=== PATIENT | male | born 1980 | race Caucasian/White ===

== ENCOUNTER 2018-06-24 07:17 | Emergency (ER) | payer OTHER, SELFPAY ==
[2018-06-24] MEDS ORDERED: NA CHLORIDE 0.9% 1,000 ML ONE ×2 (07:46→08:04)
[2018-06-24 07:52] LABS: Urine Blood 3+ (NEG); Urine Glucose NEGATIVE (NEG); Urine Protein TRACE (NEG); Urine Specific Gravity >1.030 (1.005-1.030); Urine pH 5.5 (5.0-7.0)
[2018-06-24] MEDS ORDERED: ONDANSETRON 4 MG/2 ML VIAL ONE (08:02)
[2018-06-24] MEDS ORDERED: FENTANYL CITR 100 MCG/2 ML ONE (08:04)
[2018-06-24 08:07] LABS: Urine Bacteria <20 /HPF (NONE SEEN)
[2018-06-24 08:07] LABS: Absolute Lymphocytes (CBC) 1.3 K/uL (0.7-4.9); Absolute Monocytes 0.4 K/uL (0.1-1.3); Absolute Neutrophil 2.7 K/uL (1.8-8.0); Basophils % 0.7 % (0-1.3); Eosinophils % 4.1 % (0-4.4); Hematocrit 45.7 % (39.6-49.0); Lymphocytes % 27.9 % (15.3-44.8); MCH 29.5 pg (27.0-35.0); MCV 85.6 fL (80-100); MPV 9.2 fL (7.6-11.3); Monocytes % 8.3 % (3.3-12.3); RBC Red Blood Cell Count 5.34 M/uL (4.33-5.43)
[2018-06-24 08:08] LABS: Urine Culture Reflex Order NOT NEEDED; Urine Mucus SLIGHT /HPF (NONE SEEN)
[2018-06-24 08:09] LABS: Calcium Oxalate Crystals- Ur FEW (NONE SEEN)
[2018-06-24 08:09] LABS: Potassium 3.9 mmol/L (3.5-5.1)
--- NOTE | 2018-06-24 08:12 | RAD REPORT ---
EXAM DESCRIPTION: CT - Stone Protocol - 06/24/2018 7:51 am CLINICAL HISTORY: Abdominal pain. Right flank pain. Dysuria COMPARISON: None. TECHNIQUE: Computed axial tomography of the abdomen pelvis was obtained without oral or IV contrast. Lack of IV and oral contrast limits evaluation of solid organs, bowel, and vessels. Coronal reformat sandee images were obtained and reviewed. All CT scans are performed using dose optimization technique as appropriate and may include automated exposure control or mA/KV adjustment according to patient size. FINDINGS: A renal calculus is not seen. Mild right hydronephrosis is present. A 4.5 millimeter calcu mcia Hounsfield unit 100 is present at the right ureteral vesicle junction. A left renal calculus is n ot seen. The liver, spleen, pancreas and adrenals appear grossly normal There is no evidence of diverticulitis. The appendix appears normal. Tiny umbilical hernia is seen. IMPRESSION: 4.5 millimeter calculus distal right ureterovesical junction resulting in mild right hyd ronephrosis
[2018-06-24] MEDS ORDERED: MAGNESIUM SULFATE 1 gm IVPB 1 GM/100 ML BAG IV ONE (08:31)
[2018-06-24] MEDS ORDERED: KETOROLAC 30 MG/ML INJ ONE (08:31)
[2018-06-24] MEDS ORDERED: TAMSULOSIN 0.4 MG SR CAP ONE (08:31)
--- NOTE | 2018-06-24 08:52 | ER ---
Nurse's Notes [facility] Name: Kyle Curiel Age: 38 yrs Sex: Male : 1980 Arrival Date: 06/24/2018 Time: 07:20 Bed 18 Private MD: Diagnosis: Calculus of kidney and ureter Presentation: 06/24 07:30 Presenting complaint: Patient states: R flank pain that began this morning, also ph reports difficulty urinating, denies N/V or fever. Transition of care: patient was not received from another setting of care. Onset of symptoms was June 24, 2018. Risk Assessment: Do you want to hurt yourself or someone else? Patient reports no desire to harm self or others. Initial Sepsis Screen: Does the patient meet any 2 criteria? No. Patient's initial sepsis screen is negative. Does the patient have a suspected source of infection? No. Patient's initial sepsis screen is negative. Care prior to arrival: None. 07:30 Method Of Arrival: Ambulatory ph 07:30 Acuity: KELLY 3 ph Historical: - Allergies: 07:31 No Known Allergies; ph - Home Meds: 07:31 None [Active]; ph - PMHx: 07:31 None; ph - PSHx: 07:31 None; ph - Immunization history:: Adult Immunizations unknown, Flu vaccine is not up to date. - Social history:: Smoking status: Patient/guardian denies using tobacco. - Ebola Screening: : No symptoms or risks identified at this time. Screenin:49 Abuse screen: Denies threats or abuse. Denies injuries from another. Nutritional ph screening: No deficits noted. Tuberculosis screening: No symptoms or risk factors identified. Fall Risk None identified. Assessment: 07:48 General: Appears in no apparent distress. uncomfortable, well groomed, Behavior is ph calm, cooperative, appropriate for age, Denies fever. Pain: Complains of pain in right lower quadrant and right flank. Neuro: Level of Consciousness is awake, alert, obeys commands, Oriented to person, place, time, situation. Cardiovascular: Capillary refill < 3 seconds in bilateral fingers Patient's skin is warm and dry. Respiratory: Airway is patent Respiratory effort is even, unlabored. GI: Abdomen is round non-distended, Bowel sounds present X 4 quads. Abd is soft and non tender X 4 quads. Patient currently denies diarrhea, nausea, vomiting. : Reports pain in right flank(s), lower quadrant(s) with urination, "difficulty urinating". Derm: Skin is intact, is healthy with good turgor, Skin is pink, warm \\T\\ dry. Musculoskeletal: Circulation, motion, and sensation intact. Range of motion: intact in all extremities. 08:30 Reassessment: Patient appears in no apparent distress at this time. Patient and/or ph family updated on plan of care and expected duration. Pain level reassessed. Patient is alert, oriented x 3, equal unlabored respirations, skin warm/dry/pink. 09:21 Reassessment: Patient appears in no apparent distress at this time. Patient and/or ph family updated on plan of care and expected duration. Pain level reassessed. Patient is alert, oriented x 3, equal unlabored respirations, skin warm/dry/pink. Pt d/c home w/ multiple prescriptions. Vital Signs: 07:31 BP 145 / 93; Pulse 65; Resp 18; Temp 97.8; Pulse Ox 95% on R/A; Weight 124.74 kg; ph Height 6 ft. 0 in. (182.88 cm); Pain 5/10; 08:34 BP 126 / 72; Pulse 62; Resp 18; Pulse Ox 97% on R/A; ph 09:21 BP 122 / 68; Pulse 61; Resp 18; Temp 97.9; Pulse Ox 97% on R/A; ph 07:31 Body Mass Index 37.30 (124.74 kg, 182.88 cm) ph ED Course: 07:20 Patient arrived in ED. as 07:21 Jacqueline Willams FNP-C is PHCP. kb 07:21 Fei Nassar MD is Attending Physician. kb 07:30 Maribel Humphreys RN is Primary Nurse. ph 07:30 Initial lab(s) drawn, sent to lab. Urine collected: clean catch specimen, elly colored.ph 07:31 Triage completed. ph 07:32 Arm band placed on. ph 07:40 Inserted saline lock: 20 gauge in right antecubital area, using aseptic technique. ph Blood collected. 07:50 Patient has correct armband on for positive identification. Bed in low position. Call ph light in reach. Side rails up X 1. Pulse ox on. NIBP on. Warm blanket given. 07:52 CT Stone Protocol In Process Unspecified. EDMS 08:53 Ishmael Decker MD is Referral Physician. kb 09:22 No provider procedures requiring assistance completed. IV discontinued, intact, ph bleeding controlled, No redness/swelling at site. Pressure dressing applied. Administered Medications: 08:03 Drug: NS 0.9% 1000 ml Route: IV; Rate: 1000 ml; Site: right antecubital; la1 09:00 Follow up: Response: No adverse reaction; IV Status: Completed infusion ph 08:03 Drug: fentaNYL (PF) 50 mcg Route: IVP; Site: right antecubital; la1 08:34 Follow up: Response: No adverse reaction ph 08:03 Drug: Zofran 4 mg Route: IVP; Site: right antecubital; la1 08:34 Follow up: Response: No adverse reaction ph 08:33 Drug: Flomax 0.4 mg Route: PO; ph 09:00 Follow up: Response: No adverse reaction ph 08:33 Drug: TORadol 30 mg Route: IVP; Site: right antecubital; ph 09:00 Follow up: Response: No adverse reaction; Pain is decreased ph 08:34 Drug: Magnesium Sulfate 1 grams Route: IVPB; Infused Over: 30 mins; Site: right ph antecubital; 09:10 Follow up: Response: No adverse reaction; IV Status: Completed infusion ph Outcome: 08:52 Discharge ordered by MD. kb 09:22 Discharged to home ambulatory. ph 09:22 Condition: good 09:22 Discharge instructions given to patient, Instructed on discharge instructions, follow up and referral plans. medication usage, Demonstrated understanding of instructions, follow-up care, medications, Prescriptions given X 5 09:23 Patient left the ED. ph Signatures: Dispatcher [employer] EDJacqueline Lott, ADAM HUFFMAN-Bri Sweet Lee RN RN la1 Maribel Humphreys RN RN ph
--- NOTE | 2018-06-24 08:53 | EDPHYS ---
Physician Documentation [facility] Name: Kyle Curiel Age: 38 yrs Sex: Male : 1980 Arrival Date: 06/24/2018 Time: 07:20 Bed 18 Private MD: ED Physician Fei Nassar HPI: 06/24 07:31 This 38 yrs old Male presents to ER via Ambulatory with complaints of kb Possible Kidney Stone. 07:32 The patient complains of pain in the right flank. The pain radiates to the right lower kb quadrant. Onset: The symptoms/episode began/occurred this morning. Modifying factors: The symptoms are alleviated by nothing. the symptoms are aggravated by nothing. Associated signs and symptoms: Pertinent positives: dysuria, difficulty urinating. Severity of pain: At its worst the pain was moderate in the emergency department the pain has improved. The patient has experienced a previous episode, last week, but today's symptoms are not as bad as this previous episode. The patient has not recently seen a physician. Historical: - Allergies: 07:31 No Known Allergies; ph - Home Meds: 07:31 None [Active]; ph - PMHx: 07:31 None; ph - PSHx: 07:31 None; ph - Immunization history:: Adult Immunizations unknown, Flu vaccine is not up to date. - Social history:: Smoking status: Patient/guardian denies using tobacco. - Ebola Screening: : No symptoms or risks identified at this time. ROS: 07:31 Constitutional: Negative for fever, chills, and weight loss, Cardiovascular: Negative kb for chest pain, palpitations, and edema, Respiratory: Negative for shortness of breath, cough, wheezing, and pleuritic chest pain, Abdomen/GI: Negative for abdominal pain, nausea, vomiting, diarrhea, and constipation, MS/Extremity: Negative for injury and deformity, Skin: Negative for injury, rash, and discoloration, Neuro: Negative for headache, weakness, numbness, tingling, and seizure. 07:31 : Positive for urinary symptoms, flank pain, small amounts, burning with urination, difficulty urinating. Exam: 07:31 Constitutional: This is a well developed, well nourished patient who is awake, alert, kb and in no acute distress. Head/Face: Normocephalic, atraumatic. Chest/axilla: Normal chest wall appearance and motion. Nontender with no deformity. No lesions are appreciated. Cardiovascular: Regular rate and rhythm with a normal S1 and S2. No gallops, murmurs, or rubs. Normal PMI, no JVD. No pulse deficits. Respiratory: Lungs have equal breath sounds bilaterally, clear to auscultation and percussion. No rales, rhonchi or wheezes noted. No increased work of breathing, no retractions or nasal flaring. Abdomen/GI: Soft, non-tender, with normal bowel sounds. No distension or tympany. No guarding or rebound. No evidence of tenderness throughout. Back: No spinal tenderness. No costovertebral tenderness. Full range of motion. Skin: Warm, dry with normal turgor. Normal color with no rashes, no lesions, and no evidence of cellulitis. MS/ Extremity: Pulses equal, no cyanosis. Neurovascular intact. Full, normal range of motion. Neuro: Awake and alert, GCS 15, oriented to person, place, time, and situation. Cranial nerves II-XII grossly intact. Motor strength 5/5 in all extremities. Sensory grossly intact. Cerebellar exam normal. Normal gait. Vital Signs: 07:31 BP 145 / 93; Pulse 65; Resp 18; Temp 97.8; Pulse Ox 95% on R/A; Weight 124.74 kg; ph Height 6 ft. 0 in. (182.88 cm); Pain 5/10; 08:34 BP 126 / 72; Pulse 62; Resp 18; Pulse Ox 97% on R/A; ph 09:21 BP 122 / 68; Pulse 61; Resp 18; Temp 97.9; Pulse Ox 97% on R/A; ph 07:31 Body Mass Index 37.30 (124.74 kg, 182.88 cm) ph MDM: 07:22 Patient medically screened. kb 07:31 Data reviewed: vital signs, nurses notes. Data interpreted: Pulse oximetry: on room air kb is 95 %. Interpretation: normal. 08:51 Counseling: I had a detailed discussion with the patient and/or guardian regarding: the kb historical points, exam findings, and any diagnostic results supporting the discharge/admit diagnosis, lab results, radiology results, the need for outpatient follow up, a urologist, to return to the emergency department if symptoms worsen or persist or if there are any questions or concerns that arise at home. 06/24 07:26 Order name: Basic Metabolic Panel; Complete Time: 08:14 kb 06/24 07:26 Order name: CBC with Diff; Complete Time: 08:14 kb 06/24 07:26 Order name: Urine Microscopic Only; Complete Time: 08:14 kb 06/24 07:26 Order name: CT Stone Protocol; Complete Time: 08:14 kb 06/24 07:40 Order name: Urine Dipstick--Ancillary (enter results); Complete Time: 08:08 bd 06/24 07:26 Order name: IV Saline Lock; Complete Time: 08:03 kb 06/24 07:26 Order name: Labs collected and sent; Complete Time: 08:03 kb 06/24 07:26 Order name: Urine Dipstick-Ancillary (obtain specimen); Complete Time: 07:32 kb Administered Medications: 08:03 Drug: NS 0.9% 1000 ml Route: IV; Rate: 1000 ml; Site: right antecubital; la1 09:00 Follow up: Response: No adverse reaction; IV Status: Completed infusion ph 08:03 Drug: fentaNYL (PF) 50 mcg Route: IVP; Site: right antecubital; la1 08:34 Follow up: Response: No adverse reaction ph 08:03 Drug: Zofran 4 mg Route: IVP; Site: right antecubital; la1 08:34 Follow up: Response: No adverse reaction ph 08:33 Drug: Flomax 0.4 mg Route: PO; ph 09:00 Follow up: Response: No adverse reaction ph 08:33 Drug: TORadol 30 mg Route: IVP; Site: right antecubital; ph 09:00 Follow up: Response: No adverse reaction; Pain is decreased ph 08:34 Drug: Magnesium Sulfate 1 grams Route: IVPB; Infused Over: 30 mins; Site: right ph antecubital; 09:10 Follow up: Response: No adverse reaction; IV Status: Completed infusion ph Disposition: 16:16 Co-signature as Attending Physician, Fei Nassar MD I agree with the assessment and kdr plan of care. Disposition: 06/24/18 08:52 Discharged to Home. Impression: Calculus of kidney and ureter. - Condition is Stable. - Discharge Instructions: Kidney Stones, [id number], Dietary Guidelines to Help Prevent Kidney Stones. - Prescriptions for Zofran 4 mg Oral Tablet - take 1 tablet by ORAL route every 6 hours As needed; 20 tablet. Flomax 0.4 mg Oral Capsule, Sust. Release 24 hr - take 1 capsule by ORAL route once daily 1/2 hour following the same meal each day; 10 capsule. Diclofenac Sodium 75 mg Oral Tablet, Delayed Release (E.C.) - take 1 tablet by ORAL route 2 times per day As needed; 30 tablet. Tramadol 50 mg Oral Tablet - take 1 tablet by ORAL route every 8 hours as needed; 12 tablet. Macrobid 100 mg Oral Capsule - take 1 capsule by ORAL route every 12 hours for 7 days; 14 capsule. - Medication Reconciliation Form, Thank You Letter, Antibiotic Education, Prescription Opioid Use form. - Follow up: Emergency Department; When: As needed; Reason: Worsening of condition. Follow up: Private Physician; When: 2 - 3 days; Reason: Recheck today's complaints, Continuance of care, Re-evaluation by your physician. Follow up: Ishmael Decker MD; When: 2 - 3 days; Reason: Recheck today's complaints. Signatures: Dispatcher [employer] EDMS Jacqueline Willams, CHEMICAL ETCH OPERATOR-C CHEMICAL ETCH OPERATOR-CkFei Cantu MD MD kdr Fransisco Nicole RN RN la1 Maribel Humphreys RN RN ph Corrections: (The following items were deleted from the chart) 08:53 08:52 06/24/2018 08:52 Discharged to Home. Impression: Calculus of kidney and ureter. kb Condition is Stable. Forms are Medication Reconciliation Form, Thank You Letter, Antibiotic Education, Prescription Opioid Use. Follow up: Emergency Department; When: As needed; Reason: Worsening of condition. Follow up: Private Physician; When: 2 - 3 days; Reason: Recheck today's complaints, Continuance of care, Re-evaluation by your physician. kb 09:23 08:53 06/24/2018 08:52 Discharged to Home. Impression: Calculus of kidney and ureter. ph Condition is Stable. Discharge Instructions: Kidney Stones, [id number], Dietary Guidelines to Help Prevent Kidney Stones. Prescriptions for Zofran 4 mg Oral Tablet - take 1 tablet by ORAL route every 6 hours As needed; 20 tablet, Flomax 0.4 mg Oral Capsule, Sust. Release 24 hr - take 1 capsule by ORAL route once daily 1/2 hour following the same meal each day; 10 capsule, Diclofenac Sodium 75 mg Oral Tablet, Delayed Release (E.C.) - take 1 tablet by ORAL route 2 times per day As needed; 30 tablet, Tramadol 50 mg Oral Tablet - take 1 tablet by ORAL route every 8 hours as needed; 12 tablet, Macrobid 100 mg Oral Capsule - take 1 capsule by ORAL route every 12 hours for 7 days; 14 capsule. and Forms are Medication Reconciliation Form, Thank You Letter, Antibiotic Education, Prescription Opioid Use. Follow up: Emergency Department; When: As needed; Reason: Worsening of condition. Follow up: Private Physician; When: 2 - 3 days; Reason: Recheck today's complaints, Continuance of care, Re-evaluation by your physician. Follow up: Ishmael Decker; When: 2 - 3 days; Reason: Recheck today's complaints. kb
== END 2018-06-24 09:23 | disposition home or self-care (01) ==
LOC: ER 07:17
DX: N20.2 Calculus of kidney with calculus of ureter (principal)
CPT/HCPCS: 36415; 74176; 76377; 80048; 81003; 81015; 85025; 96361; 96365; 96375; 99284; J2405; J3010; J3475; J7030

== ENCOUNTER 2025-06-17 08:50 | Emergency (ER) | payer BC, OTHER ==
[2025-06-17] MEDS ORDERED: KETOROLAC 30 MG/ML INJ ONE (09:09)
[2025-06-17] MEDS ORDERED: ONDANSETRON 4 MG/2 ML VIAL ONE (09:09)
[2025-06-17] MEDS ORDERED: MORPHINE 4 MG/ML SYR ONE ×2 (09:10→09:15)
[2025-06-17] MEDS ORDERED: NA CHLORIDE 0.9% 1,000 ML ONE (09:10)
[2025-06-17 09:22] LABS: Absolute Lymphocytes (CBC) 1.3 K/uL (0.7-4.9); Hematocrit 46.2 % (39.6-49.0); Hemoglobin 16.0 g/dL (13.6-17.9); MCH 29.0 pg (27.0-35.0); MCHC 34.6 g/dL (32.0-36.0); MCV 83.8 fL (80-100); MPV 9.4 fL (7.6-11.3); Nucleated RBC Absolute Count 0.0 (0-0); Nucleated Red Blood Cells % 0.2 % (0-0); RBC Red Blood Cell Count 5.51 M/uL (4.33-5.43); White Blood Count 8.30 thou/uL (4.3-10.9)
[2025-06-17 09:33] LABS: Sqamous Epithelial None Seen /HPF (None Seen); Urine Crystals Unidentified Many /HPF (None Seen); Urine Culture Reflex Order REFLEXED; Urine Microscopic Reflex YN ORDER UMIC; Urine WBC Clump Moderate /HPF (None Seen); Urine Yeast (Budding) Many /HPF (None Seen)
[2025-06-17 09:37] LABS: ALT/SGPT 47.0 U/L (16-61); AST/SGOT 19.0 U/L (15-37); Albumin 3.9 g/dL (3.4-5.0); Albumin/Globulin Ratio 0.9 (1.1-1.8); Alkaline Phosphatase 68.0 U/L (45-117); Anion Gap 10.7 mEq/L (5.0-15.0); BUN Blood Urea Nitrogen 17.0 mg/dL (7-18); Globulin 4.2 g/dL (2.3-3.5); Glucose Level 133.0 mg/dL (74-106); Potassium 3.7 mEq/L (3.5-5.1)
--- NOTE | 2025-06-17 13:04 | RAD REPORT ---
EXAMINATION: CT Stone Protocol CLINICAL INDICATION: Male, 45 years old. ABD PAIN TECHNIQUE: CT abdomen and pelvis was performed, without IV contrast, as per department protocol. Axia l, sagittal and coronal reconstructions were obtained. One or more of the following dose reduction techniques were used: Automated exposure control, adjustment of the mA and kV according to the patien t size, and iterative reconstruction. Unless otherwise specified, incidental findings do not require dedicated imaging follow-up. COMPARISON: No prior exam. FINDINGS: The lack of intravenous contrast limits the sensitivity of this exam for evaluation of solid visceral organs, vascular structures, and retroperitoneum. LOWER CHEST: The visualized lung bases are clear. LIVER: Normal in size and contour. No focal lesion. BILIARY SYSTEM: No suspicious abnormalities. SPLEEN: Normal size. No focal lesion. PANCREAS: No mass, ductal dilation, or dahiana-pancreatic fluid. ADRENALS: Normal; no mass. KIDNEYS AND URETERS: Normal size and contour. 1-2 mm nonobstructing calculi at both upper renal poles . No hydronephrosis although there is mild prominence of the left renal pelvis. URINARY BLADDER: Normal contour. GASTROINTESTINAL TRACT: No evidence of bowel obstruction, significant free fluid, free air or abscess . Distal colonic diverticulosis without evidence of acute diverticulitis APPENDIX: Normal appendix. LYMPH NODES: No lymphadenopathy. MUSCULOSKELETAL: No acute or suspicious osseous abnormality. ADDITIONAL FINDINGS: None. IMPRESSION: No acute or concerning abnormalities in the abdomen or pelvis, with evaluation limited by lack of IV contrast. Incidental findings including distal colonic diverticulosis.
--- NOTE | 2025-06-17 13:14 | EDPHYS ---
Physician Documentation [facility] Name: Kyle Curiel Age: 45 yrs Sex: Male : 1980 Arrival Date: 06/17/2025 Time: 08:50 Bed 16 Private MD: ED Physician Gurdeep Michele HPI: 06/17 09:10 This 45 yrs old Male presents to ER via Ambulatory with complaints of dr5 Possible Kidney Stone. 09:10 Onset: The symptoms/episode began/occurred this morning. Patient is a 45-year-old male dr5 with history of kidney stones coming in with left flank lower pain that started this morning. Patient reports he has a history of kidney stones that he has passed and this feels like previous. Patient denies hematuria, nausea, vomiting, or fever.. Historical: - Allergies: 09:02 No Known Allergies; aa5 - PMHx: 09:03 kidney stones; aa5 - Immunization history:: Adult Immunizations unknown. - Infectious Disease History:: Denies. - Social history:: Smoking status: Patient denies any tobacco usage or history of. ROS: 09:10 Constitutional: as per hpi dr5 Exam: 09:10 Constitutional: This is a well developed, well nourished patient who is awake, alert, dr5 and in no acute distress. Head/Face: Normocephalic, atraumatic. Eyes: Pupils equal round and reactive to light, extra-ocular motions intact. Lids and lashes normal. Conjunctiva and sclera are non-icteric and not injected. Cornea within normal limits. Periorbital areas with no swelling, redness, or edema. Neck: Trachea midline, no thyromegaly or masses palpated, and no cervical lymphadenopathy. Supple, full range of motion without nuchal rigidity, or vertebral point tenderness. No Meningismus. Chest/axilla: Normal chest wall appearance and motion. Nontender with no deformity. No lesions are appreciated. Cardiovascular: Regular rate and rhythm with a normal S1 and S2. Normal PMI, no JVD. No pulse deficits. Respiratory: Lungs have equal breath sounds bilaterally, clear to auscultation. No rales, rhonchi or wheezes noted. No increased work of breathing, no retractions or nasal flaring. Abdomen/GI: Soft, non-tender, non-distended. No tenderness to palpation but patient in obvious distress from pain. Back: No spinal tenderness. No costovertebral tenderness. Full range of motion. Skin: Warm, dry with normal turgor. Normal color with no rashes, no lesions, and no evidence of cellulitis. MS/ Extremity: Pulses equal, no cyanosis. Neurovascular intact. Full, normal range of motion. Neuro: Awake and alert, GCS 15, oriented to person, place, time, and situation. Cranial nerves II-XII grossly intact. Motor strength 5/5 in all extremities. Sensory grossly intact. Cerebellar exam normal. Normal gait. Vital Signs: 09:03 BP 156 / 97; Pulse 87; Resp 26 S; Temp 97.8(O); Pulse Ox 100% on R/A; Weight 136.08 kg aa5 (R); Height 6 ft. 0 in. (R); 11:29 BP 137 / 82; Pulse 91; Resp 16; Temp 98.6; Pulse Ox 97% on R/A; Pain 0/10; zm 12:10 BP 129 / 79; Pulse 90; Resp 18; Pulse Ox 98% ; kj2 13:10 BP 124 / 78; Pulse 88; Resp 20; Temp 98; Pulse Ox 100% ; kj2 09:03 Body Mass Index 40.69 (136.08 kg, 182.88 cm) aa5 11:29 Pain Scale: Adult zm Iain Coma Score: 11:29 Eye Response: spontaneous(4). Motor Response: obeys commands(6). Verbal Response: zm oriented(5). Total: 15. MDM: 08:54 Medical Screening Exam initiated dr5 14:30 Differential diagnosis: viral Infection, Kidney stone, hydronephrosis, UTI. Data dr5 reviewed: vital signs, nurses notes, lab test result(s), CBC, white blood cell count, hemoglobin, hematocrit, platelets, electrolytes, sodium, potassium, chloride, serum bicarbonate, BUN, creatinine, serum glucose, urinalysis, radiologic studies, CT scan. Consideration of Admission/Observation Escalation of care including admission/observation considered. Escalation considered patient found to have obstructing stone with hydronephrosis. I considered the following discharge prescriptions or medication management in the emergency department I discussed and recommended Over The Counter medications, Medications were administered in the Emergency Department. See MAR. Care significantly affected by the following chronic conditions: Nephrolithiasis. Care significantly affected by the following Social Determinants of Health: Poor access to healthcare and/or lack of insurance, Poor access to transportation, Problems related to employment. Counseling: I had a detailed discussion with the patient and/or guardian regarding the historical points, exam findings, and any diagnostic results supporting the discharge/admit diagnosis, the presence of at least one elevated blood pressure reading (>120/80) during this emergency department visit, lab results, radiology results, the need for outpatient follow up, for definitive care, a family practitioner, a urologist, to return to the emergency department if symptoms worsen or persist or if there are any questions or concerns that arise at home. Medication response: Response to treatment: the patient's symptoms have resolved after treatment, the patient's condition has returned to base line, the patient is now symptom free. Special discussion: I discussed with the patient/guardian in detail that at this point there is no indication for admission to the hospital. It is understood, however, that if the symptoms persist or worsen the patient needs to return immediately for re-evaluation. Based on the history and exam findings, there is no indication for further emergent testing or inpatient evaluation. I discussed with the patient/guardian the need to see the primary care provider for further evaluation of the symptoms. ED course: CT scan does not reveal stone. Patient reports that he felt that he possibly passed it prior to CT scan after fluids are given. Will cover patient with antibiotics for possible urinary tract infection development. Will give patient medications for future stones just in case. All results discussed and printed out and given to patient take with him to urologist and primary care doctor. All questions answered. Strict ER precautions given.. 06/17 09:01 Order name: CBC with Diff; Complete Time: 09:29 dr5 06/17 09:01 Order name: CMP; Complete Time: 09:38 dr5 06/17 09:04 Order name: UA Rfx Ryan Cult if indicated; Complete Time: 09:38 dr5 06/17 09:39 Order name: Urine Culture EDMA 06/17 12:15 Order name: CT Stone Protocol; Complete Time: 13:08 dr5 06/17 09:01 Order name: IV Saline Lock; Complete Time: 09:18 dr5 06/17 09:01 Order name: Labs collected and sent; Complete Time: :18 dr5 Administered Medications: 09:12 Drug: Ondansetron IVP 4 mg IVP once; over 2 minutes Route: IVP; Site: left antecubital; aa5 09:28 Follow up: Response: No adverse reaction aa5 12:10 Follow up: Response: No adverse reaction kj2 09:14 Drug: morphine IVP or IV 4 mg IVP once over 4 mins Route: IVP; Infused Over: 4 mins; aa5 Site: left antecubital; 09:28 Follow up: Response: No adverse reaction; Pain is decreased aa5 13:28 Follow up: Response: No adverse reaction kj2 09:14 Drug: NS 0.9% IV 1000 ml IV at 1 bolus Per protocol; to be given as a bolus over 60 aa5 minutes Route: IV; Rate: 1 bolus; Site: left antecubital; 13:27 Follow up: IV Status: Completed infusion; IV Intake: 1000ml kj2 09:14 Drug: Ketorolac IVP 15 mg IVP once Route: IVP; Site: left antecubital; aa5 13:10 Follow up: Response: No adverse reaction; Pain is decreased kj2 09:30 Drug: morphine IVP or IV 4 mg IVP once over 4 mins Route: IVP; Infused Over: 4 mins; aa5 Site: left antecubital; 12:10 Follow up: Response: No adverse reaction; Pain is decreased kj2 Disposition: 06/18 07:52 Co-signature as Attending Physician, Gurdeep Michele MD I agree with the assessment and nicole plan of care. Disposition Summary: 06/17/25 13:14 Discharge Ordered Notes: Location: Home dr5 Condition: Stable dr5 Diagnosis - Kidney Stone/ Calculus in urethra - Passed stone(06/17/25 13:14) dr5 Followup: dr5 - With: Emergency Department - When: As needed - Reason: Worsening of condition Followup: dr5 - With: Erich Joyce MD - When: 1 - 2 days - Reason: Recheck today's complaints, Continuance of care, Re-evaluation by your physician Discharge Instructions: - Discharge Summary Sheet dr5 - Kidney Stones dr5 - Dietary Guidelines to Help Prevent Kidney Stones dr5 Forms: - Medication Reconciliation Form dr5 - Prescription Opioid Use dr5 - Patient Portal Instructions dr5 - Leadership Thank You Letter dr5 Prescriptions: - Flomax 0.4 mg Oral capsule - take 1 capsule ORAL route daily; 30 capsule; Refills: 0, Product Selection dr5 Permitted - ketorolac 10 mg Oral tablet - take 1 tablet ORAL route every 6 hours as needed for pain; maximum total dr5 duration of 5 days from all oral, intranasal, or parenteral formulations; 30 tablet; Refills: 0, Product Selection Permitted - Cephalexin 500 mg Oral Capsule - take 1 capsule ORAL route every 12 hours for 10 days; 20 capsule; Refills: 0, dr5 Product Selection Permitted - Tramadol 50 mg Oral Tablet - take 1 tablet ORAL route every 8 hours as needed; 12 tablet; Refills: 0, dr5 Product Selection Permitted Signatures: Dispatcher [employer] EDMS Gurdeep Michele MD MD cha Calderon, Audri, RN RN aa5 Jose R Olivares, SUPERVISOR TYPE BAR AND SEGMENT-C SUPERVISOR TYPE BAR AND SEGMENT-Cdr5 Keisha Silva RN kj2 Corrections: (The following items were deleted from the chart) 06/17 12:16 12:16 Stone Protocol+CT.RAD.BRZ ordered. EDMA EDMS 13:14 13:14 Kidney Stone/ Calculus in urethra - ureter dr5 dr5
--- NOTE | 2025-06-17 13:14 | ER ---
Nurse's Notes [facility] Name: Kyle Curiel Age: 45 yrs Sex: Male : 1980 Arrival Date: 06/17/2025 Time: 08:50 Bed 16 Private MD: Diagnosis: Kidney Stone/ Calculus in urethra-Passed stone Presentation: 06/17 09:03 Chief complaint: Patient states: left flank pain that began at 0630, reports nausea and aa5 vomiting. 09:03 Coronavirus screen: At this time, the client does not indicate any symptoms associated aa5 with coronavirus-19. Ebola Screen: Patient denies travel to an Ebola-affected area in the 21 days before illness onset. Initial Sepsis Screen: Does the patient meet any 2 criteria? No. Patient's initial sepsis screen is negative. Does the patient have a suspected source of infection? No. Patient's initial sepsis screen is negative. Risk Assessment: Do you want to hurt yourself or someone else? Patient reports no desire to harm self or others. Onset of symptoms was June 17, 2025. 09:03 Method Of Arrival: Ambulatory aa5 09:03 Acuity: KELLY 2 aa5 Historical: - Allergies: 09:02 No Known Allergies; aa5 - PMHx: 09:03 kidney stones; aa5 - Immunization history:: Adult Immunizations unknown. - Infectious Disease History:: Denies. - Social history:: Smoking status: Patient denies any tobacco usage or history of. Screenin: [facility] ED Fall Risk Assessment (Adult) History of falling in the last 3 months, aa5 including since admission No falls in past 3 months (0 pts) Confusion or Disorientation No (0 pts) Intoxicated or Sedated No (0 pts) Impaired Gait No (0 pts) Mobility Assist Device Used No (0 pt) Altered Elimination No (0 pt) Score/Fall Risk Level 0 - 2 = Low Risk Oriented to surroundings, Maintained a safe environment, Educated pt \T\ family on fall prevention, incl call for assistance when getting out of bed, Assessed \T\ reinforced patient's understanding of fall precautions. Abuse screen: Denies threats or abuse. Nutritional screening: No deficits noted. Tuberculosis screening: No symptoms or risk factors identified. Assessment: 09:03 General: Appears uncomfortable, Behavior is cooperative, restless. Pain: Complains of aa5 pain in left flank Pain currently is 10 out of 10 on a pain scale. Quality of pain is described as sharp, shooting, Pain began 0630 today Is continuous, Noted to be restless. Neuro: Level of Consciousness is awake, alert, obeys commands, Oriented to person, place, time, situation. Cardiovascular: Heart tones S1 S2 present Rhythm is regular. Respiratory: Airway is patent Respiratory effort is even, unlabored, Respiratory pattern is regular, symmetrical. GI: Abdomen is round non-distended, Bowel sounds present X 4 quads. Abd is soft and non tender X 4 quads. Reports nausea, vomiting. : Reports pain flank(s). EENT: No signs and/or symptoms were reported regarding the EENT system. Derm: Skin is clammy, Skin is normal, Skin temperature is cool. Musculoskeletal: Range of motion: intact in all extremities. 09:28 Reassessment: Patient is alert, oriented x 3, equal unlabored respirations, skin aa5 warm/dry/pink. Pt appears more comfortable than previous assessment, rates pain 8/10 on a pain scale. Provider was notified of slight improvement. . 11:29 Reassessment: Patient appears in no apparent distress at this time. Patient and/or zm family updated on plan of care and expected duration. Pain level reassessed. Patient is alert, oriented x 3, equal unlabored respirations, skin warm/dry/pink. Patient denies pain at this time. Patient states feeling better. Patient states symptoms have improved. 12:10 Reassessment: Patient appears in no apparent distress at this time. Patient and/or kj2 family updated on plan of care and expected duration. Pain level reassessed. Patient is alert, oriented x 3, equal unlabored respirations, skin warm/dry/pink. 13:10 Reassessment: Patient appears in no apparent distress at this time. Patient and/or kj2 family updated on plan of care and expected duration. Pain level reassessed. Patient is alert, oriented x 3, equal unlabored respirations, skin warm/dry/pink. Vital Signs: 09:03 BP 156 / 97; Pulse 87; Resp 26 S; Temp 97.8(O); Pulse Ox 100% on R/A; Weight 136.08 kg aa5 (R); Height 6 ft. 0 in. (R); 11:29 BP 137 / 82; Pulse 91; Resp 16; Temp 98.6; Pulse Ox 97% on R/A; Pain 0/10; zm 12:10 BP 129 / 79; Pulse 90; Resp 18; Pulse Ox 98% ; kj2 13:10 BP 124 / 78; Pulse 88; Resp 20; Temp 98; Pulse Ox 100% ; kj2 09:03 Body Mass Index 40.69 (136.08 kg, 182.88 cm) aa5 11:29 Pain Scale: Adult zm Iain Coma Score: 11:29 Eye Response: spontaneous(4). Motor Response: obeys commands(6). Verbal Response: zm oriented(5). Total: 15. ED Course: 08:51 Patient arrived in ED. mr 08:53 Joes R Olivares, [facility] 08:53 Gurdeep Michele MD is Attending Physician. dr5 09:02 Arm band placed on. aa5 09:10 Kati Lowe, CAROL is Primary Nurse. aa5 09:12 Patient has correct armband on for positive identification. Bed in low position. Call aa5 light in reach. Side rails up X 1. Pulse ox on. NIBP on. 09:12 Initial lab(s) drawn, by me, sent to lab. Inserted saline lock: 20 gauge in left aa5 antecubital area, using aseptic technique. Blood collected. Flushed with 10 mL NS. 09:20 Triage completed. aa5 09:22 No provider procedures requiring assistance completed. aa5 12:26 CT Stone Protocol In Process Unspecified. EDMS 13:14 Erich Joyce MD is Referral Physician. dr5 13:26 Provided Education on: discharge instructions reviewed. kj2 13:26 IV discontinued, intact, bleeding controlled, No redness/swelling at site. Pressure kj2 dressing applied. Administered Medications: 09:12 Drug: Ondansetron IVP 4 mg IVP once; over 2 minutes Route: IVP; Site: left antecubital; aa5 09:28 Follow up: Response: No adverse reaction aa5 12:10 Follow up: Response: No adverse reaction kj2 09:14 Drug: morphine IVP or IV 4 mg IVP once over 4 mins Route: IVP; Infused Over: 4 mins; aa5 Site: left antecubital; 09:28 Follow up: Response: No adverse reaction; Pain is decreased aa5 13:28 Follow up: Response: No adverse reaction kj2 09:14 Drug: NS 0.9% IV 1000 ml IV at 1 bolus Per protocol; to be given as a bolus over 60 aa5 minutes Route: IV; Rate: 1 bolus; Site: left antecubital; 13:27 Follow up: IV Status: Completed infusion; IV Intake: 1000ml kj2 09:14 Drug: Ketorolac IVP 15 mg IVP once Route: IVP; Site: left antecubital; aa5 13:10 Follow up: Response: No adverse reaction; Pain is decreased kj2 09:30 Drug: morphine IVP or IV 4 mg IVP once over 4 mins Route: IVP; Infused Over: 4 mins; aa5 Site: left antecubital; 12:10 Follow up: Response: No adverse reaction; Pain is decreased kj2 Medication: 09:22 VIS not applicable for this client. aa5 Intake: 13:27 IV: 1000ml; Total: 1000ml. kj2 Outcome: 13:14 Discharge ordered by . juan francisco 13:25 Discharged to home ambulatory, kj2 13:25 Condition: stable 13:25 Discharge instructions given to patient, Instructed on discharge instructions, follow up and referral plans. Demonstrated understanding of instructions, follow-up care, 13:28 Patient left the ED. kj2 Signatures: Dispatcher [employer] EDCheri Newell, Reg Ozzy savage LoweKati dawn, RN RN aa5 Jana Enrique RN RN zm Jordan, Krystal, RN RN kj2 Jose R Olivares, BLANCHARD GRINDER OPERATOR-C BLANCHARD GRINDER OPERATOR-Cdr5
[2025-06-17 15:27] VITALS: TEMP 98
[2025-06-17 15:38] VITALS: BP 156/86; O2SAT 96
== END 2025-06-17 13:28 | disposition home or self-care (01) ==
LOC: ER 08:50
DX: N20.0 Calculus of kidney (principal); N21.1 Calculus in urethra
CPT/HCPCS: 96361; 87088; 85025; 81001; 36415; 80053; 76377; 74176; 96375; 96374; 99284; J1885; J2405; J7030; 87086